=== PATIENT | male | born 1990 | race Caucasian/White ===

== ENCOUNTER 2020-06-04 08:26 | Emergency (ER) | payer OTHER ==
[2020-06-04] MEDS ORDERED: Metoclopramide 10 MG/2 ML SDV IVPUSH PRN (08:52)
[2020-06-04 09:14] LABS: ANION GAP 20.4 mEq/L (7-13); CHLORIDE,CL 101 mmol/L (98-107); SODIUM,NA 140 mmol/L (136-145)
[2020-06-04] MEDS ORDERED: Sodium Chloride 0.9% 1,000 ML IV ONE (09:37)
--- NOTE | 2020-06-04 10:33 | CT ---
PROCEDURE INFORMATION: Exam: CT Abdomen And Pelvis Without Contrast Exam date and time: 06/04/2020 10:09 AM Age: 29 years old Clinical indication: Abdominal pain; Generalized; Prior surgery; Surgery date: 6+ months; Surgery type: Appendix removed at age 20; Additional info: Pain, nausea vomiting TECHNIQUE: Imaging protocol: Computed tomography of the abdomen and pelvis without contrast. Radiation optimization: All CT scans at this facility use at least one of these dose optimization techniques: automated exposure control; mA and/or kV adjustment per patient size (includes targeted exams where dose is matched to clinical indication); or iterative reconstruction. COMPARISON: No relevant prior studies available. FINDINGS: Liver: Normal. No mass. Gallbladder and bile ducts: Normal. No calcified stones. No ductal dilation. Pancreas: Normal. No ductal dilation. Spleen: Normal. No splenomegaly. Adrenal glands: Normal. No mass. Kidneys and ureters: Normal. No hydronephrosis. Stomach and bowel: Moderate fluid filled stomach. No gastric wall thickening. Normal appearance to small bowel and colon. No obstruction. No mucosal thickening. Appendix: Appendectomy. Metallic sutures right lower quadrant. Intraperitoneal space: Unremarkable. No free air. No significant fluid collection. Vasculature: Unremarkable. No abdominal aortic aneurysm. Lymph nodes: Unremarkable. No enlarged lymph nodes. Urinary bladder: Unremarkable as visualized. Reproductive: Unremarkable as visualized. Bones/joints: Unremarkable. No acute fracture. Soft tissues: Unremarkable. IMPRESSION: No acute intra-abdominal or pelvic findings.
--- NOTE | 2020-06-04 10:53 | EDM.PDOC ---
ED HPI GENERAL MEDICAL PROBLEM - General Chief Complaint: Gastrointestinal Problem Stated Complaint: [id number] VOMITING AND DIARRHEA Time Seen by Provider: 06/04/20 08:45 Source of Information: Reports: Patient History Limitations: Reports: No Limitations - History of Present Illness INITIAL COMMENTS - FREE TEXT/NARRATIVE: ED with c/o nausea vomiting and diarrhea since 299. No fever or chills. Estimates 40 small loose stools, vomited 10+ times liquid. COVID tested yesterday and negative. At [facility] this weekend. Abdominal Pain Score (Numeric/FACES): 5 - Related Data Allergies Allergy/AdvReac Type Severity Reaction Status Date / Time No Known Allergies Allergy Verified 06/04/20 08:39 Past Medical History HEENT History: Reports: Impaired Vision Other HEENT History: wears glasses Cardiovascular History: Reports: None Respiratory History: Reports: None Gastrointestinal History: Reports: None Other Gastrointestinal History: ulcers as a child Genitourinary History: Reports: None Musculoskeletal History: Reports: None Neurological History: Reports: None Psychiatric History: Reports: None Endocrine/Metabolic History: Reports: None Hematologic History: Reports: None Immunologic History: Reports: None Oncologic (Cancer) History: Reports: None Dermatologic History: Reports: None - Infectious Disease History Infectious Disease History: Reports: None - Past Surgical History Head Surgeries/Procedures: Reports: None GI Surgical History: Reports: Appendectomy Social & Family History - Tobacco Use Years of Tobacco use: 10 Packs/Tins Daily: 0.5 Second Hand Smoke Exposure: No - Caffeine Use Caffeine Use: Reports: Coffee, Soda - Recreational Drug Use Recreational Drug Use: No ED ROS GENERAL - Review of Systems Review Of Systems: Comprehensive ROS is negative, except as noted in HPI. ED EXAM, GI/ABD - Physical Exam Exam: See Below Exam Limited By: No Limitations General Appearance: Alert, Mild Distress, Thin Eyes: Bilateral: EOMI Ears: Normal External Exam Nose: Normal Inspection Throat/Mouth: Normal Inspection Head: Atraumatic, Normocephalic Neck: Normal Inspection Respiratory/Chest: No Respiratory Distress, Lungs Clear, Normal Breath Sounds Cardiovascular: Normal Peripheral Pulses, Regular Rate, Rhythm, Tachycardia GI/Abdominal Exam: Soft, No Distention, Tender (mild lower), Abnormal Bowel Sounds (hyperactive) Back Exam: Normal Inspection Extremities: Normal Inspection, Normal Range of Motion Neurological: Alert, Oriented, Normal Cognition Psychiatric: Normal Affect, Normal Mood Skin Exam: Warm, Dry, Intact, Normal Color Course - Vital Signs Last Recorded V/S: Last Vital Signs Temp 98.1 F 06/04/20 08:37 Pulse 108 H 06/04/20 08:37 Resp 24 H 06/04/20 08:37 BP 114/71 06/04/20 08:37 Pulse Ox 100 06/04/20 08:37 - Orders/Labs/Meds Orders: Active Orders 24 hr Category Date Time Status CLOSTRIDIUM DIFFICILE TOX RFLX [MREF] Stat Lab 06/04/20 10:14 Received CULTURE STOOL [RM] Stat Lab 06/04/20 10:14 Received SHIGA TOXIN 1 & 2 [MREF] Stat Lab 06/04/20 10:14 Received Isolation [COMM] Stat Oth 06/04/20 10:16 Active Labs: Laboratory Tests 06/04/20 06/04/20 06/04/20 Range/Units 08:48 08:48 09:24 WBC 12.7 H (5.0-10.0) 10^3/uL RBC 5.84 (4.6-6.2) 10^6/uL Hgb 16.7 (14.0-18.0) g/dL Hct 47.5 (40.0-54.0) % MCV 81.3 (80-100) fL MCH 28.6 (27.0-34.0) pg MCHC 35.2 H (33.0-35.0) g/dL Plt Count 213 (150-450) 10^3/uL Neut % (Auto) 86.1 H (42.2-75.2) % Lymph % (Auto) 4.3 L (20.5-50.1) % [place] % (Auto) 8.8 H (2-8) % Eos % (Auto) 0.6 L (1.0-3.0) % Baso % (Auto) 0.2 (0.0-1.0) % Sodium 140 (136-145) mmol/L Potassium 4.4 (3.5-5.1) mmol/L Chloride 101 (98-107) mmol/L Carbon Dioxide 23 (21-32) mmol/L Anion Gap 20.4 H (7-13) mEq/L BUN 17 (7-18) mg/dL Creatinine 1.35 H (0.70-1.30) mg/dL Est Cr Clr Drug Dosing 76.84 mL/min Estimated GFR (MDRD) > 60 BUN/Creatinine Ratio 12.6 (No establ ref range) Glucose 113 H (70-99) mg/dL Calcium 9.7 (8.5-10.1) mg/dL Total Bilirubin 1.1 H (0.2-1.0) mg/dL AST 33 (15-37) U/L ALT 67 H (16-63) U/L Alkaline Phosphatase 69 (46-116) U/L Total Protein 8.0 (6.4-8.2) g/dL Albumin 4.7 (3.4-5.0) g/dL Globulin 3.3 Albumin/Globulin Ratio 1.4 Amylase 44 (25-115) U/L Lipase 69 L (73-393) U/L Urine Color Yellow (YELLOW) Urine Appearance Slightly cloudy (CLEAR) Urine pH 7.0 (5.0-9.0) Ur Specific [place] 1.020 (1.005-1.030) Urine Protein 30 H (NEGATIVE) Urine Glucose (UA) Negative (NEGATIVE) Urine Ketones 40 H (NEGATIVE) Urine Occult Blood Trace-intact H (NEGATIVE) Urine Nitrite Negative (NEGATIVE) Urine Bilirubin Small H (NEGATIVE) Urine Urobilinogen 0.2 (0.2-1.0) mg/dL Ur Leukocyte Esterase Negative (NEGATIVE) Urine RBC 10-20 H /HPF Urine WBC 0-5 (0-5/HPF) /HPF Ur Epithelial Cells Few (NOT SEEN) /HPF Amorphous Sediment Few (NOT SEEN) /HPF Urine Bacteria Rare (0-FEW/HPF) /HPF Urine Mucus Many H (NOT SEEN) /LPF Meds: Medications Discontinued Medications Generic Name Dose Route Start Last Admin Trade Name Freq PRN Reason Stop Dose Admin Sodium Chloride 1,000 mls @ 999 mls/hr 06/04/20 09:37 06/04/20 09:44 Normal Saline IV 06/04/20 10:37 999 mls/hr .BOLUS ONE Administration Metoclopramide HCl 10 mg 06/04/20 08:52 06/04/20 08:55 Metoclopramide 10 Mg/2 Ml Sdv IVPUSH 10 mg ONETIME PRN Administration Vomiting Departure - Departure Time of Disposition: 10:52 Disposition: Home, Self-Care 01 Condition: Good Clinical Impression: Gastroenteritis, Vomiting, Diarrhea - Discharge Information *PRESCRIPTION DRUG MONITORING PROGRAM REVIEWED*: No *COPY OF PRESCRIPTION DRUG MONITORING REPORT IN PATIENT ABDULLAHI: No Instructions: Nausea and Vomiting, Adult Forms: ED Department Discharge Additional Instructions: slow introduction of liquids, small amounts more frequently advance diet slowly as tolerated immodium 2mg up to 8 tabs in 24 hours zofran 4mg ODT every 4 hours as needed for nausea avoid greasy , spicy foods, limit use of chewing tobacco, Sepsis Event Note (ED) - Evaluation Sepsis Screening Result: No Definite Risk - Focused Exam Vital Signs: Vital Signs Temp Pulse Resp BP Pulse Ox 06/04/20 08:37 98.1 F 108 H 24 H 114/71 100 - My Orders Last 24 Hours: My Active Orders 06/04/20 10:14 CLOSTRIDIUM DIFFICILE TOX RFLX [MREF] Stat CULTURE STOOL [RM] Stat SHIGA TOXIN 1 & 2 [MREF] Stat 06/04/20 10:16 Isolation [COMM] Stat - Assessment/Plan Last 24 Hours: My Active Orders 06/04/20 10:14 CLOSTRIDIUM DIFFICILE TOX RFLX [MREF] Stat CULTURE STOOL [RM] Stat SHIGA TOXIN 1 & 2 [MREF] Stat 06/04/20 10:16 Isolation [COMM] Stat
== END 2020-06-04 11:11 | disposition home or self-care (01) ==
LOC: DL.ED 08:26
DX: K52.9 Noninfective gastroenteritis and colitis, unspecified (principal); Z72.0 Tobacco use; Z90.49 Acquired absence of other specified parts of digestive tract
CPT/HCPCS: 36415; 74176; 80053; 81001; 82150; 83690; 85025; 87045; 87046; 87493; 87899; 96374; 99284-25; J2765; J7030